=== PATIENT | male | born 1970 | race Caucasian/White ===

== ENCOUNTER 2020-04-25 17:32 | Emergency (ER) | payer OTHER ==
[~2020-04-25] VITALS: Ht 172.7 cm; Wt 113.4 kg
[~2020-04-25 17:32] MED LIST: DULOXETINE HCL60 MG PO; GABAPENTIN300 MG PO; HYDROCHLOROTH12.5 MG PO; LEVOTHYROXINE88 MCG PO; METOPROLOL SUC100 MG PO; OMEPRAZOLE20 MG PO; SIMVASTATIN40 MG PO
--- OUTSIDE RECORDS SUMMARY | 2020-04-25 17:36 | XMS ---
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 Jackie has no Care Guidelines for this patient. Monique VISIT COUNT (12 MO.) 1 CAROLYN Cantor TOTAL 1 NOTE: Visits indicate total known visits. ED/C VISIT TRACKING (12 MO.) 04/25/2020 17:33 [facility] [place] TYPE: Emergency COMPLAINT: - ANKLE PAIN, INJ INPATIENT VISIT TRACKING (12 MO.) No inpatient visits to display in this time frame [id number]
[2020-04-25] MEDS ORDERED: NORCO 5-325 TA1 EACH PO (19:26)
== END 2020-04-25 19:36 | disposition home or self-care (01) ==
LOC: ED 17:32
DX: S82.831A Other fracture of upper and lower end of right fibula, initial encounter for closed fracture (principal); S86.011A Strain of right Achilles tendon, initial encounter; I10 Essential (primary) hypertension; Z88.0 Allergy status to penicillin; Z88.8 Allergy status to other drugs, medicaments and biological substances; Z79.899 Other long term (current) drug therapy; X58.XXXA Exposure to other specified factors, initial encounter
CPT/HCPCS: 73610; 99283-25

== ENCOUNTER 2020-04-29 15:56 | Emergency (ER) | payer OTHER ==
[~2020-04-29] VITALS: Ht 172.7 cm; Wt 113.4 kg
[~2020-04-29 15:56] MED LIST changes: +NORCO 5-325 TA1 EACH PO
--- OUTSIDE RECORDS SUMMARY | 2020-04-29 15:58 | XMS ---
PreManage Notification: CEFERINO FONSECA Security Eap Counselor Events No recent Security Events currently on file CRITERIA MET - Group Notification - PDMP - [facility] - 2 Visits in 30 Days CARE PROVIDERS ANILA ESQUIVEL Emergency Medicine 04/27/2020-Current PHONE: [phone] Jackie has no Care Guidelines for this patient. Monique VISIT COUNT (12 MO.) 2 [facility] TOTAL 2 NOTE: Visits indicate total known visits. ED/UCC VISIT TRACKING (12 MO.) 04/29/2020 15:56 [facility] [place] TYPE: Emergency COMPLAINT: - MEDICATION REFILL 04/25/2020 17:33 [facility] [place] TYPE: Emergency COMPLAINT: - ANKLE PAIN, INJ DIAGNOSES: - Other fracture of upper and lower end of right fibula, initia - Allergy status to other drugs, medicaments and biological sub - Strain of right Achilles tendon, initial encounter - Allergy status to penicillin - Pain in right ankle and joints of right foot - Exposure to other specified factors, initial encounter - Other residential (current) drug therapy - Essential (primary) hypertension INPATIENT VISIT TRACKING (12 MO.) No inpatient visits to display in this time frame [id number]
== END 2020-04-29 16:36 | disposition home or self-care (01) ==
LOC: ED 15:56
DX: Z53.21 Procedure and treatment not carried out due to patient leaving prior to being seen by health care provider (principal)

== ENCOUNTER → 2020-07-27 | Emergency (ER) | payer SELFPAY ==
[~2020-07-27] VITALS: Ht 172.7 cm; Wt 113.4 kg
--- OUTSIDE RECORDS SUMMARY | 2020-07-27 09:26 | XMS ---
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 CRITERIA MET - Group Notification CARE PROVIDERS ANILA ESQUIVEL Emergency Medicine 04/27/2020-Current PHONE: [phone] Jackie has no Care Guidelines for this patient. E.D. VISIT COUNT (12 MO.) 3 [facility]. TOTAL 3 NOTE: Visits indicate total known visits. 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
--- NOTE | 2020-07-27 18:52 | EKG ---
[facility] [address] [place] [address] Signed Sinus tachycardia Possible Inferior infarct , age undetermined Abnormal ECG When compared with ECG of 06-APR-2019 12:27, Vent. rate has increased BY 62 BPM Borderline criteria for Inferior infarct are now present Confirmed by GRACIELA HESS MD ([id number]) on 07/27/2020 6:52:30 PM Electronically Signed By: GRACIELA HESS MD 07/27/20 185 PATIENT NAME: CEFERINO FONSECA Electrocardiogram DATE OF : 72 PHYSICIAN: GRACIELA HESS MD REPORT #: [id number] REPORT IS CONFIDENTIAL AND NOT TO BE RELEASED WITHOUT AUTHORIZATION
== END ==
LOC: ED 09:24
DX: E86.0 Dehydration (principal); K21.9 Gastro-esophageal reflux disease without esophagitis; I10 Essential (primary) hypertension; Z88.0 Allergy status to penicillin; Z88.8 Allergy status to other drugs, medicaments and biological substances; Z79.899 Other long term (current) drug therapy
CPT/HCPCS: 71045; 80053; 83735; 84484; 85025; 93005; 93010; 99285-25; J7030

== ENCOUNTER 2020-11-04 10:29 | Emergency (ER) | payer OTHER ==
[~2020-11-04] VITALS: Ht 172.7 cm; Wt 113.4 kg
--- OUTSIDE RECORDS SUMMARY | 2020-11-04 10:32 | XMS ---
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 CRITERIA MET - Group Notification - PDMP CARE PROVIDERS ANILA ESQUIVEL Emergency Medicine 04/27/2020-Current PHONE: [phone] Jackie has no Care Guidelines for this patient. Care History Medical/Surgical 07/27/2020 [facility] - Patient is currently established with [facility]. If patient is seen in the ED during business hours. Please contact CHWs at [facility]. Care Recommendation: If this patient has had 5 or more Emergency Department visits in the last 12 months.\T\nbsp; Patient will require education on the scope and purpose of the ED as an acute care provider not a Primary Care Provider and should not be utilized for chronic conditions.\T\nbsp; These are guidelines and the provider should exercise clinical judgment when providing care. E.D. VISIT COUNT (12 MO.) 4 [facility] TOTAL 4 NOTE: Visits indicate total known visits. 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 - Essential (primary) hypertension - Dehydration - Chest pain, unspecified 04/29/2020 15:56 [facility] [place] TYPE: Emergency COMPLAINT: - MEDICATION REFILL DIAGNOSES: - Procedure and treatment not carried out due to patient leaving prior to being seen by health care provider 04/25/2020 17:33 [facility] [place] TYPE: Emergency COMPLAINT: - ANKLE PAIN, INJ DIAGNOSES: - Other fracture of upper and lower end of right fibula, initial encounter for closed fracture - Allergy status to other drugs, medicaments and biological substances - Strain of right Achilles tendon, initial encounter - Allergy status to penicillin - Pain in right ankle and joints of right foot - Exposure to other specified factors, initial encounter - 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
[2020-11-04] MEDS ORDERED: DOXYCYCLINE MO100 M1 PO (10:45)
[2020-11-04] MEDS ORDERED: ATORVASTATIN CA80 MG PO (10:46)
[2020-11-04] MEDS ORDERED: EUTHYROX25 MCG PO (10:51)
== END 2020-11-04 14:58 | disposition home or self-care (01) ==
LOC: ED 10:29
DX: H92.02 Otalgia, left ear (principal); I10 Essential (primary) hypertension; Z87.891 Personal history of nicotine dependence; Z88.0 Allergy status to penicillin; Z88.8 Allergy status to other drugs, medicaments and biological substances; Z79.899 Other long term (current) drug therapy
CPT/HCPCS: 70450; 80053; 85025; 96374; 96375; 99284-25; J1200; J1885; J2765; J7030

== ENCOUNTER 2022-10-15 16:30 | Emergency (ER) | payer OTHER ==
[~2022-10-15] VITALS: Ht 172.7 cm; Wt 109.8 kg
[~2022-10-15 16:30] MED LIST changes: +ATORVASTATIN CA80 MG PO; +DOXYCYCLINE MO100 M1 PO; +EUTHYROX25 MCG PO; -OMEPRAZOLE20 MG PO; +PRILOSEC OTC20 MG PO; +ZOCOR10 MG PO
--- OUTSIDE RECORDS SUMMARY | 2022-10-15 16:34 | XMS ---
PreManage Notification: CEFERINO FONSECA Security National Accounts Recruiter Events No recent Security Events currently on file CRITERIA MET - PDMP - Group Notification CARE PROVIDERS ANILA ESQUIVEL Emergency Medicine 04/27/2020-Current PHONE: [phone] Jackie has no Care Guidelines for this patient. Care History Medical/Surgical 12/29/2020 [facility] Patient admitted - Covid 19 Positive 07/27/2020 [facility] - Patient is currently established with [facility]. If patient is seen in the ED during business hours. Please contact CHWs at [facility]. Care Recommendation: If this patient has had [...] providing care. E.D. VISIT COUNT (12 MO.) 1 [facility]. TOTAL 1 NOTE: Visits indicate total known visits. ED/UCC VISIT TRACKING (12 MO.) 10/15/2022 16:[address] [facility] [place] TYPE: Emergency COMPLAINT: - DIZZY INPATIENT VISIT TRACKING (12 MO.) No inpatient visits to display in this time frame [id number]
[2022-10-15] MEDS ORDERED: ONDANSETRON ODT4 MG PO (18:15)
== END 2022-10-15 18:26 | disposition home or self-care (01) ==
LOC: ED 16:30
DX: J10.1 Influenza due to other identified influenza virus with other respiratory manifestations (principal); E78.00 Pure hypercholesterolemia, unspecified; I10 Essential (primary) hypertension; Z20.822 Contact with and (suspected) exposure to COVID-19; Z88.0 Allergy status to penicillin; Z88.8 Allergy status to other drugs, medicaments and biological substances; Z79.899 Other long term (current) drug therapy
CPT/HCPCS: 36415; 71045; 80053; 83690; 85025; 85060; 87502; 99284-25; C9803; J7030; U0003

== ENCOUNTER 2023-01-30 06:42 | Emergency (ER) | payer OTHER ==
[~2023-01-30] VITALS: Ht 172.7 cm; Wt 122.5 kg
[~2023-01-30 06:42] MED LIST changes: +ONDANSETRON ODT4 MG PO
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
[2023-01-30] MEDS ORDERED: EZETIMIBE10 MG PO (06:52)
[2023-01-30] MEDS ORDERED: BUPROPION HCL100 MG PO (06:52)
[2023-01-30] MEDS ORDERED: AMLODIPINE BESY10 MG PO (06:52)
== END 2023-01-30 07:58 | disposition home or self-care (01) ==
LOC: ED 06:42
DX: S43.401A Unspecified sprain of right shoulder joint, initial encounter (principal); S53.401A Unspecified sprain of right elbow, initial encounter; I10 Essential (primary) hypertension; Z88.0 Allergy status to penicillin; Z88.8 Allergy status to other drugs, medicaments and biological substances; Z79.899 Other long term (current) drug therapy; V27.49XA Other motorcycle driver injured in collision with fixed or stationary object in traffic accident, initial encounter
CPT/HCPCS: 73030; 73080; 99283-25; A9270

== ENCOUNTER 2023-02-09 09:27 | Emergency (ER) | payer OTHER ==
[~2023-02-09] VITALS: Ht 172.7 cm; Wt 122.5 kg
[~2023-02-09 09:27] MED LIST changes: +AMLODIPINE BESY10 MG PO; +BUPROPION HCL100 MG PO; +EZETIMIBE10 MG PO
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
[2023-02-09] MEDS ORDERED: HYDROCODON-ACE1 EA11 PO (10:02)
== END 2023-02-09 11:28 | disposition home or self-care (01) ==
LOC: ED 09:27
DX: S82.832A Other fracture of upper and lower end of left fibula, initial encounter for closed fracture (principal); X50.1XXA Overexertion from prolonged static or awkward postures, initial encounter; I10 Essential (primary) hypertension; Z88.0 Allergy status to penicillin; Z88.8 Allergy status to other drugs, medicaments and biological substances; Z79.899 Other long term (current) drug therapy
CPT/HCPCS: 73610; 99283-25; A9270

== ENCOUNTER 2023-02-17 07:22 | Day surgery (SDC) | payer OTHER ==
[2023-02-14 15:30] VITALS: BP 130/86
[~2023-02-17] VITALS: Ht 172.7 cm; Wt 127.3 kg
[~2023-02-17 07:22] MED LIST changes: +HYDROCODON-ACE1 EA11 PO
[2023-02-17 07:55] VITALS: BP 138/87
--- NOTE | 2023-02-17 11:14 | NUR ---
02/17/23 1114 Tahira Lang 1112 PATIENT ARRIVES TO PACU AWAKE BUT DROWSY. RESP EVEN AND UNLABORED. ROOM AIR SATS >95%.
[2023-02-17 11:48] VITALS: BP 133/85
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
== END 2023-02-17 12:10 | disposition home or self-care (01) ==
LOC: DS 07:22
PROVIDERS: ATTEND Specialist
PROC: 3E0T3BZ Introduction of Anesthetic Agent into Peripheral Nerves and Plexi, Percutaneous Approach (ICD-10-PCS; 2023-02-17)
PROC: 3E0T33Z Introduction of Anti-inflammatory into Peripheral Nerves and Plexi, Percutaneous Approach (ICD-10-PCS; 2023-02-17)
PROC: 3E0T3BZ Introduction of Anesthetic Agent into Peripheral Nerves and Plexi, Percutaneous Approach (ICD-10-PCS; 2023-02-17)
PROC: 3E0T33Z Introduction of Anti-inflammatory into Peripheral Nerves and Plexi, Percutaneous Approach (ICD-10-PCS; 2023-02-17)
PROC: 0QSK04Z Reposition Left Fibula with Internal Fixation Device, Open Approach (ICD-10-PCS; principal; 2023-02-17 10:20)
DX: S82.62XA Displaced fracture of lateral malleolus of left fibula, initial encounter for closed fracture (principal); E78.00 Pure hypercholesterolemia, unspecified; I10 Essential (primary) hypertension; E05.90 Thyrotoxicosis, unspecified without thyrotoxic crisis or storm; Z79.899 Other long term (current) drug therapy; W01.0XXA Fall on same level from slipping, tripping and stumbling without subsequent striking against object, initial encounter
CPT/HCPCS: 01480; 64417; 64447; 64454; 73600; 76942; C1713; C1769; J0690; J1100; J1885; J2250; J2405; J2704; J2795; J7121

== ENCOUNTER 2023-06-05 06:39 | Day surgery (SDC) | payer OTHER ==
[~2023-06-05] VITALS: Ht 172.7 cm; Wt 122.0 kg
[~2023-06-05 06:39] MED LIST changes: +CEFDINIR300 MG PO; +FLOMAX0.4 MG PO; +LEVOTHYROXINE75 MCG PO; +OXYCODONE HCL5 MG PO; +PYRIDIUM100 MG PO; +TRAMADOL HCL50 MG PO; +VENTOLIN HFA18 GM INH
[2023-06-05 07:10] VITALS: BP 138/85
[2023-06-05] MEDS ORDERED: FLOMAX0.4 MG PO (07:14)
[2023-06-05 11:56] VITALS: BP 124/77
--- NOTE | 2023-06-07 12:48 | OR ---
[facility] [address] [facility] [place], [place] [address] Signed DATE OF OPERATION: 06/05/2023 SURGEON: Olegario Sterling MD PREOPERATIVE DIAGNOSES: 1. 5 to 6 mm partially obstructing left midureteral calculus. 2. Status post cystoscopy with left ureteral stent insertion. 3. Benign prostatic hyperplasia with elevated bladder neck. POSTOPERATIVE DIAGNOSES: 1. 5 to 6 mm partially obstructing left midureteral calculus. 2. Status post cystoscopy with left ureteral stent insertion. 3. Benign prostatic hyperplasia with elevated bladder neck. NAMES OF PROCEDURES: 1. Left flexible nephroureteroscopy with basket extraction of 5 to 6 mm left ureteral calculus. 2. Left ureteral stent exchange. 3. Urethral dilation from 16-Burkinan to 26-Burkinan. ANESTHESIA: General. ESTIMATED BLOOD LOSS: Minimal. COMPLICATIONS: None. SPECIMENS: One 5 to 6 mm calculus sent to the lab for stone analysis. DRAINS: A 6 by variable length double-J ureteral stent present in the left collecting system. INDICATIONS FOR PROCEDURE: Mr. Fonseca is a very pleasant 53-year-old gentleman, who presented to me earlier this month with severe left-sided flank pain. He was found to have an obstructing 5 to 6 mm left ureteral calculus. His initial stent placement was complicated by extremely elevated bladder neck along with prostatic hyperplasia. I was able to successfully pass Electronically Signed By: OLEGARIO STERLING MD 06/07/23 1248 PATIENT NAME: CEFERINO FONSECA OPERATIVE REPORT DATE OF : 72 REPORT #: [id number] PHYSICIAN: OLEGARIO STERLING MD PCP: ANILA ESQUIVEL NP REPORT IS CONFIDENTIAL AND NOT TO BE RELEASED WITHOUT AUTHORIZATION [facility] [address] [place], [place] [address] Signed an indwelling ureteral stent to allow for passive dilation of the left ureter and to force drainage of the patient's left collecting system. The patient presents today to undergo definitive extraction of his left ureteral calculus. OPERATIVE FINDINGS: 1. Digital rectal examination revealed an approximately 25 g prostate gland that is soft, smooth and symmetric with no focal nodules. 2. Diagnostic cystoscopy reveals an indwelling left ureteral stent with an adequate coil present within the bladder. Ureteroscopy again reveals an elevated bladder neck along with moderately obstructing lateral lobes of the prostate. The prostate itself is not as rigid during today's procedure. 3. Left retrograde pyelogram was performed which revealed a normal left renal pelvis with no evidence of any calyceal blunting. Also, no evidence of any filling defects within the left ureter. Prior to the retrograde pyelogram, I was able to easily see the large midureteral calculus alongside the patient's indwelling ureteral stent. The calculus was noted to be remain in the mid portion of the left ureter. 4. Flexible ureteroscopy was performed and the midureteral calculus had migrated to the left kidney during placement of the ureteral access sheath. This stone was extracted using a Zero tip basket without difficulty. I then performed a thorough inspection of the left kidney and entire length of the left ureter and did not appreciate any additional calculi in the collecting system. 5. At the end of the procedure, a fresh 6 by variable length double-J ureteral stent was inserted into the patient's left collecting system under direct visualization without difficulty. DESCRIPTION OF PROCEDURE: After informed consent was obtained, the patient was taken back to the operating room. [facility] operating room table, where general anesthesia was induced. He was placed in the dorsal lithotomy position and his genitalia were prepped and draped in a standard sterile fashion. Using a 30-degree lens on a 22.5-Burkinan introducer, rigid cystoscope was inserted through his urethra and into his bladder under direct visualization. Prior to this, his urethral meatus was dilated using Russell sounds from 16-Burkinan to 26-Burkinan without difficulty. Once within the bladder, I did appreciate the distal coil of the indwelling ureteral stent. Using graspers, I was able to pull the distal coil from the bladder and out through the urethra. I then passed a Sensor wire through the lumen of the stent and up into the left collecting system. The indwelling ureteral stent was then removed fully intact. I then turned my attention to the x-ray of the left collecting system. I was able to appreciate the 5 to 6 mm stone present in the left mid ureter right alongside the Sensor wire. I then passed a 13/15 ureteral access sheath over the wire and into the patient's left collecting system. I was careful to place the sheath just distal to the stone within the left ureter. A left retrograde pyelogram was performed to confirm that the Electronically Signed By: OLEGARIO STERLING MD 06/07/23 1248 PATIENT NAME: CEFERINO FONSECA OPERATIVE REPORT DATE OF : 72 REPORT #: [id number] PHYSICIAN: OLEGARIO STERLING MD PCP: ANILA ESQUIVEL NP REPORT IS CONFIDENTIAL AND NOT TO BE RELEASED WITHOUT AUTHORIZATION [address] [address] Signed sheath was in proper place. I also noted that there was no calyceal blunting within the left renal pelvis. I passed a flexible ureteroscope through the sheath and into the left proximal ureter and left kidney. I found that the 5 to 6 mm stone had migrated into the left renal pelvis. The stone was removed in toto using a Zero tip basket from the left collecting system with ease. I re-evaluated the left collecting system and did not appreciate any additional calcifications within this area. I then slowly pulled the ureteroscope out to view the remainder of the ureter and again the ureter was free of calculi. I passed a Sensor wire through the ureteral access sheath and up into the left collecting system. I removed the ureteral access sheath and then passed a fresh 6 by variable length double-J ureteral stent into the patient's collecting system under direct visualization using a cystoscope. Once I pulled the wire, an adequate proximal coil was noted within the left renal pelvis. An adequate distal coil was noted on cystoscopy. The patient's bladder was then drained and the cystoscope was removed. The stent was placed with a string attached. The string was then secured to the patient's phallus. The procedure was then terminated. The patient tolerated the procedure well without any complication. He will now be transferred to the postanesthesia care unit in stable condition. DISPOSITION: I discussed the details of today's procedure with the patient's fiance and answered all of her questions. He will be expected to remove his indwelling ureteral stent using the string attached in 5 days, which would be June 09. He will be sent home with oxycodone 5 mg one tablet p.o. q.6 hours p.r.n. pain, dispense #30, along with Cipro 500 mg p.o. b.i.d. for a total of 7 days. He will be scheduled to return to clinic in 2 to 3 months to discuss the results of the stone analysis. MD COURTNEY Laws/MODL /[id number] Copies: ~ Electronically Signed By: OLEGARIO STERLING MD 06/07/23 1248 PATIENT NAME: CEFERINO FONSECA OPERATIVE REPORT DATE OF : 72 REPORT #: [id number] PHYSICIAN: OLEGARIO STERLING MD PCP: ANILA ESQUIVEL NP REPORT IS CONFIDENTIAL AND NOT TO BE RELEASED WITHOUT AUTHORIZATION
== END 2023-06-05 13:55 ==
LOC: DS 06:39 → OPS 06:39
PROVIDERS: ATTEND Urology
PROC: 0T778DZ Dilation of Left Ureter with Intraluminal Device, Via Natural or Artificial Opening Endoscopic (ICD-10-PCS; 2023-06-05)
PROC: 0TC78ZZ Extirpation of Matter from Left Ureter, Via Natural or Artificial Opening Endoscopic (ICD-10-PCS; principal; 2023-06-05 09:45)
DX: N20.1 Calculus of ureter (principal); N20.0 Calculus of kidney; Z88.0 Allergy status to penicillin; Z88.8 Allergy status to other drugs, medicaments and biological substances
CPT/HCPCS: 00910; 74420; 82365; C1769; C2617; J0131; J0690; J1885; J2001; J2250; J2371; J2405; J2704; J3490; J7121; Q9967

== ENCOUNTER 2023-11-13 08:19 | Emergency (ER) | payer OTHER ==
[~2023-11-13] VITALS: Ht 172.7 cm; Wt 124.1 kg
[2023-11-13] MEDS ORDERED: CYMBALTA20 MG PO (08:33)
[2023-11-13 09:00] LABS: ALBUMIN/GLOBULIN RATIO 0.77 (1.1-2.4); ANION GAP 14.4 (7-21); BILIRUBIN, TOTAL 0.7 ng/dL (0.2-1.0); BUN/CREATININE RATIO 11.2 (6.0-28.6); CALCIUM 8.5 mg/dL (8.5-10.1); CREATININE, SERUM 1.25 mg/dL (0.70-1.30); POTASSIUM 3.4 mmol/L (3.5-5.1); PROTEIN, TOTAL 6.9 g/dL (6.4-8.2)
[2023-11-13 09:06] LABS: BILIRUBIN, URINE NEGATIVE (negative); BLOOD/HGB, URINE TRACE-I (Negative); KETONE, URINE NEGATIVE (Negative); LEUK ESTERASE, URINE NEGATIVE (negative); NITRITE, URINE NEGATIVE (negative)
[2023-11-13] MEDS ORDERED: HYDROCODON-ACE1 EA10 PO (09:10)
[2023-11-13] MEDS ORDERED: PREDNISONE20 MG PO (09:10)
[2023-11-13 09:19] LABS: CASTS, URINE NONE SEEN \\lpf; COLLECTION TYPE, URINE VOID; CRYSTALS, URINE NONE SEEN (0-1+); EPITHELIAL CELLS, URINE 0 /lpf (0-1+); REFLEX CULTURE, URINE No (No)
[2023-11-13 09:20] LABS: BACTERIA, URINE RARE /hpf (negative)
[2023-11-13 09:52] VITALS: BP 159/116
== END 2023-11-13 09:53 | disposition home or self-care (01) ==
LOC: ED 08:19
PROVIDERS: Emergency Medicine
DX: M54.14 Radiculopathy, thoracic region (principal); I10 Essential (primary) hypertension; E78.00 Pure hypercholesterolemia, unspecified; Z88.0 Allergy status to penicillin; Z88.8 Allergy status to other drugs, medicaments and biological substances; Z79.899 Other long term (current) drug therapy; Z79.890 Hormone replacement therapy; Z79.51 Long term (current) use of inhaled steroids
CPT/HCPCS: 36415; 80053; 81001; 85025; 99284; J7512

== ENCOUNTER 2024-01-02 07:46 | Day surgery (SDC) | payer OTHER ==
[~2024-01-02] VITALS: Ht 172.7 cm; Wt 124.3 kg
[~2024-01-02 07:46] MED LIST changes: +CYMBALTA20 MG PO; +HYDROCODON-ACE1 EA10 PO; +IBLOOD GLUCOSE TEST STRIP 1 EA TEST VI PRN; +LACTATED RINGER'S 1,000 ML IV SCH; +LIDOCAINE HCL 1% 5 ML SDV INJ ONE; +MIDAZOLAM HCL 5 MG/5 ML VIAL IV PRN; +PREDNISONE20 MG PO; +fentaNYL citrate 100 MCG/2 ML VIAL IV PRN
[2024-01-02 08:00] VITALS: BP 138/80
[2024-01-02] MEDS ORDERED: DICLOFENAC POTA50 MG PO (08:05)
[2024-01-02] MEDS ORDERED: LOSARTAN-HCTZ1 EACH PO (08:06)
[2024-01-02] MEDS ORDERED: fentaNYL citrate 100 MCG/2 ML VIAL ONE (09:04)
[2024-01-02] MEDS ORDERED: MIDAZOLAM HCL 5 MG/5 ML VIAL ONE (09:04)
[2024-01-02] MEDS ORDERED: MIDAZOLAM HCL 2 MG/2 ML VIAL ONE (09:30)
--- NOTE | 2024-01-02 09:54 | NUR ---
01/02/24 0954 Jsamin Mya 9740-PATIENT ARRIVED TO PACU ON 3L NC RR EVEN. PATIENT LAYING LEFT LATERAL DROWSY AROUSES TO VERBAL STIMULI DENIES PAIN OR NAUSEA. ABDOMEN SOFT ENCOURAGED TO PASS GAS. IVFI INFUSING. PATIENT DOZES BACK TO SLEEP.
[2024-01-02 10:23] VITALS: BP 121/84
--- NOTE | 2024-01-02 16:44 | OR ---
[facility] [address], [place] [address] Signed DATE OF OPERATION: 01/02/2024 SURGEON: Mahogany Ortiz MD PREOPERATIVE DIAGNOSES: 1. Irritable bowel syndrome with chronic diarrhea and generalized abdominal pain. 2. External hemorrhoids. 3. A paternal grandfather with colonic polyps. POSTOPERATIVE DIAGNOSIS: Minimal internal hemorrhoids. PROCEDURE: Colonoscopy without biopsy. ESTIMATED BLOOD LOSS: None. INDICATIONS: Ernie is a 53-year-old obese gentleman, asked to see me for followup colonoscopy. He has irritable bowel syndrome with chronic diarrhea and generalized abdominal pain. He is known to have some external hemorrhoids. On this occasion, he told me that his paternal grandfather apparently had some colonic polyps removed. I helped him with a colonoscopy in 2009 at the age of 39. His random biopsies were negative at that time. He had done well with Versed and fentanyl at that time. He tells me he later went to see Dr. Pepper and told me that he had the same results. In the office, I gave him a pamphlet on colonoscopy. We reviewed the nature of the test. There is risk including, but not limited to gas bloating, crampy abdominal pain, bleeding, perforation requiring surgery, and missed diagnosis. We also reviewed the written instructions for the bowel prep line by line. We also reviewed the need for IV conscious sedation. Again, he has done well with Versed and fentanyl in the past. He had expressed understanding and wished to proceed. DESCRIPTION OF PROCEDURE: Ernie was taken into our endoscopy suite and placed in the left lateral decubitus position. He was maintained with 10 mg of Versed and 200 mcg of fentanyl. Even then, he was wide awake, watching, talking and diaphoretic. He was a little uncomfortable and was pushing back on the scope. When he finally did get to sleep, he demonstrated sleep apnea. In that regard, he probably should consider monitored anesthesia care with propofol infusion as he gets older. We did a digital rectal exam and on this occasion, Electronically Signed By: MAHOGANY ORTIZ MD 01/02/24 1644 PATIENT NAME: ERNIE FONSECA OPERATIVE REPORT DATE OF : 72 REPORT #: [id number] PHYSICIAN: MAHOGANY ORTIZ MD PCP: MEGAN ESQUIVEL NP REPORT IS CONFIDENTIAL AND NOT TO BE RELEASED WITHOUT AUTHORIZATION [facility] [address], [place] [address] Signed we did not see any external hemorrhoids. He had good sphincter tone. There were no masses. He is a very large man and I could not quite reach his prostate gland. The adult colonoscope had been introduced and advanced under direct visualization of the camera. Again, we stopped frequently because he was awake and talking and looking around and diaphoretic. We eventually made it to the cecum without too much difficulty. His prep was quite good. We could easily see the appendiceal orifice and the ileocecal valve. The scope was then slowly withdrawn. We took pictures throughout for photodocumentation. We found no pathology throughout the entire colon or rectum. Upon retroflexion of the scope, he has very minimal internal hemorrhoid columns. After this, the gas was suctioned out and the colonoscope removed. Ernie tolerated the procedure overall well as described above. RECOMMENDATIONS: Ernie can follow up in 5 years due to his grandfather's history, but not more than 10. He might consider monitored anesthesia care in the future given the above findings. Mahogany Ortiz MD ALB/MODL /[id number] cc: MD Megan Arizmendi NP Copies: MAHOGANY ORTIZ MD ~ Electronically Signed By: MAHOGANY ORTIZ MD 01/02/24 1644 PATIENT NAME: ERNIE FONSECA OPERATIVE REPORT DATE OF : 72 REPORT #: [id number] PHYSICIAN: MAHOGANY ORTIZ MD PCP: MEGAN ESQUIVEL NP REPORT IS CONFIDENTIAL AND NOT TO BE RELEASED WITHOUT AUTHORIZATION
== END 2024-01-02 10:35 | disposition home or self-care (01) ==
LOC: DS 07:46 → OPS 07:46 → DS 10:30 → OPS 10:30
PROVIDERS: ATTEND Colon & Rectal Surgery
PROC: 0DJD8ZZ Inspection of Lower Intestinal Tract, Via Natural or Artificial Opening Endoscopic (ICD-10-PCS; principal; 2024-01-02 08:55)
DX: K64.8 Other hemorrhoids (principal); K58.0 Irritable bowel syndrome with diarrhea; K64.4 Residual hemorrhoidal skin tags; Z83.719 Family history of colon polyps, unspecified; K21.9 Gastro-esophageal reflux disease without esophagitis; I10 Essential (primary) hypertension; Z87.891 Personal history of nicotine dependence; E66.9 Obesity, unspecified; Z68.41 Body mass index [BMI] 40.0-44.9, adult; E03.9 Hypothyroidism, unspecified; E78.2 Mixed hyperlipidemia; M51.36 Other intervertebral disc degeneration, lumbar region; E11.9 Type 2 diabetes mellitus without complications; F41.8 Other specified anxiety disorders
CPT/HCPCS: J2250; J3010; J7121